=== PATIENT | male | born 1955 | race Caucasian/White ===

== ENCOUNTER 2021-11-20 18:46 | Emergency (ER) | payer OTHER ==
[~2021-11-20] VITALS: Ht 182.9 cm; Wt 127.0 kg
[2021-11-20 18:54] VITALS: BP 90/60
[2021-11-20] MEDS ORDERED: cefTRIAXone 1,000 MG in DEXT 5% MINI-BAG PLUS 50 ML IV ONE (18:55)
[2021-11-20] MEDS ORDERED: NACL 0.9% 1,000 ML IV SCH (18:55)
--- NOTE | 2021-11-20 18:59 | NUR ---
DR JACKSON BEDSIDE EXAMINING PT
--- NOTE | 2021-11-20 19:00 | NUR ---
66 Y/O MALE BIBA C/O ALTERED XTODAY. PER EMS PT RECEIVED COVID BOOSTER STARTED HAVE SUBJECTIVE FEVER. PT ON HGIH FLOW 92%. IV SITE TO 18 G LT AC, INFUSED 500 NS. BS 402. GCS 14 MEDHX: DM, DIALYSIS MWF, HTN, HLD, STENT NKA
--- NOTE | 2021-11-20 19:15 | NUR ---
OLGA, FLU, AND BLOOD WORK COLLECTED, HANDED TO SYDNIE DORADO
--- NOTE | 2021-11-20 19:22 | NUR ---
REPORT RECEIVED FROM SERG GALVAN FOR CONTINUITY OF PT CARE AT THIS TIME.
--- NOTE | 2021-11-20 19:22 | NUR ---
PT TAKEN TO CT SCAN VIA [facility]
--- NOTE | 2021-11-20 19:22 | NUR ---
Pt report given to VLADISLAV ULRICH. Transfer of care at this time.
[2021-11-20] MEDS ORDERED: cefTRIAXone 1,000 MG VIAL ONE (19:25)
--- NOTE | 2021-11-20 19:53 | NUR ---
PT LAYING IN BED LOCKED IN LOWEST POSITION, HOB ELEVATED, X2 SIDERAILS UP FOR SAFETY. PT AOX2, GCS 14. PT ANSWERS SOME QUESTIONS BUT TAKES TIME TO RESPOND. PT DENIES ANY PAIN JUST REPORTS ITCHING TO UPPER BACK RELIEVED BY SCRATCHING. VSS BUT TACHYPNEIC AT 30RR ON 2L NC AT 95% O2 SAT.
[2021-11-20 19:59] LABS: BASOPHILS % (AUTO) 0.8 % (0.0-2.0); HEMATOCRIT 20.8 % (36-52); LYMPHOCYTES # (AUTO) 0.5 K/uL (2.0-11.5); LYMPHOCYTES % (AUTO) 7.4 % (20.5-51.1); MEAN CORPUSCULAR HEMOGLOBIN 30 pg (27-31); MEAN CORPUSCULAR HGB CONC 33 g/dL (33-37); MEAN CORPUSCULAR VOLUME 90.9 fL (80-94); MONOCYTES # (AUTO) 0.6 K/uL (0.8-1.0); MONOCYTES % (AUTO) 8.5 % (1.7-9.3); NEUTROPHILS # (AUTO) 5.5 K/uL (1.8-7.7); NEUTROPHILS % (AUTO) 83.3 % (42.2-75.2); PLATELET COUNT (AUTO) 444 K/uL (140-450); RED BLOOD CELL COUNT(AUTO) 2.29 MIL/uL (4.20-6.10); RED CELL DISTRIBUTION WIDTH 18.4 % (11.6-13.7); WHITE BLOOD COUNT (AUTO) 6.6 K/uL (4.8-10.8)
--- NOTE | 2021-11-20 20:00 | NUR ---
PT STATED HE HAD TO USE RR, PT TAKEN OFF CLERK OF SCALES. PT TOO WEAK TO AMBULATE TO RR. PLACED BACK IN BED. EXPLAINED TO PT I WILL BRING BEDPAN.
--- NOTE | 2021-11-20 20:05 | NUR ---
PT STATED HE ALREADY WENT HAD BM ONSELF AND WILL JUST FINISH AND WE CAN CHANGE HIM AFTER.
[2021-11-20 20:12] VITALS: BP 120/53
[2021-11-20 20:45] LABS: ALBUMIN 1.5 g/dL (3.4-5.0); ANION GAP 21.6 (8-16); CARBON DIOXIDE 21.7 mmol/L (21-32); POTASSIUM 4.3 mmol/L (3.5-5.1); TOTAL BILIRUBIN 0.6 mg/dL (0.0-1.0)
--- NOTE | 2021-11-20 20:45 | NUR ---
ACLS PROTOCOL INITIATED. REFER TO CODE BLUE SHEET
--- NOTE | 2021-11-20 20:45 | NUR ---
CODE BLUE INITIATED. DR. JACKSON AND RT AT BEDSIDE
[2021-11-20 20:51] LABS: HEMOGLOBIN 6.8 g/dL (12.0-18.0)
[2021-11-20 20:53] LABS: CREATININE 6.4 mg/dL (0.6-1.3)
--- NOTE | 2021-11-20 21:05 | NUR ---
PATIENT PRONOUNCED AT THIS TIME BY. DR. Duran JACKSON
--- NOTE | 2021-11-20 21:23 | NUR ---
REPORTED PT TO [facility]. [facility] WILL CALL BACK.
--- NOTE | 2021-11-20 21:25 | NUR ---
SPOKE TO GILBERTO MARROQUIN FROM [facility]. REPORT NUMBER ([id number]).
--- NOTE | 2021-11-20 21:54 | NUR ---
2044 IRENE LONG CALLED AND PATIENT WAS BAGGED WITH AMBU BAG WITH 100% FIO2. PT WAS THEN INTUBATED WITH SIZE 8 TUBE AT 24 LIP. CPR IN PROGRESS. PT AT 2104
--- NOTE | 2021-11-20 23:15 | NUR ---
SPOKE David BECKMAN FROM [facility] FOR PT UPDATES.
--- NOTE | 2021-11-21 00:21 | NUR ---
SPOKE WITH MARTHA WONG FROM [facility], PER MARTHA TO RELEASE BODY W [facility] HOLD ([place] NOT TO BE [place]MBALMED [place] [facility] [place] PER MARTHA TO FAX OVER PT H&P, RUN SHEET, BLOOD WORK ECT TO [phone]. REPORT NUMBER [phone].
--- NOTE | 2021-11-21 02:17 | NUR ---
PT POST-MORTEM CARE PROVIDED AT THIS TIME.
--- NOTE | 2021-11-21 02:30 | NUR ---
PAVEL VAUGHAN COLLECTED AND GIVEN SECURITY FOR TO REGISTERED NURSE STEP DOWN.
--- NOTE | 2021-11-21 03:06 | NUR ---
PROVIDED PT SEBASTIEN David UPDATE ON PT CORONERS CASE, NO MORTUARY UPDATE GIVEN AT THIS TIME.
--- NOTE | 2021-11-21 03:09 | NUR ---
SPOKE TO DEEPA FROM [facility] TO SEND PT EXP UPDATE TO PCP MEGGAN JOHNSON.
--- NOTE | 2021-11-21 03:31 | NUR ---
ALL PAPERWORK GIVEN TO SERG MYERS- ACTING BASKETBALL REFEREE.
--- NOTE | 2021-11-21 03:31 | NUR ---
PT BODY MOVE TO ROOM 103B
--- NOTE | 2021-11-21 11:02 | NUR ---
Spoke to the Shwetha and they have decided to use [facility]. I called mortuary and spoke to Angelica and the family will be coming in to sign release at 1200. Angelica was made aware the patient is a reliability technicians hold and no body embolment to be done. Angelica said once release is signed patient will be picked up.
== END 2021-11-20 21:05 ==
LOC: EDBD 18:46 → MED 18:46
DX: I21.4 Non-ST elevation (NSTEMI) myocardial infarction (principal); I46.2 Cardiac arrest due to underlying cardiac condition; Z20.822 Contact with and (suspected) exposure to COVID-19
CPT/HCPCS: 31500; 36415; 70450; 71045; 80053; 83605; 83880; 84484; 85025; 87040; 87426; 87804; 92950; 93005; 96365; 99291; J0696; J7030